=== PATIENT | female | born 1980 | race Hispanic/Latino ===

== ENCOUNTER 2017-04-19 16:08 | Emergency (ER) | payer OTHER ==
[~2017-04-19] VITALS: Ht 157.5 cm; Wt 78.0 kg
[~2017-04-19 16:08] MED LIST: ACETAMINOPHEN500 MG PO; AMOXICILLIN500 MG PO; AMOXICILLIN875 MG PO; BUPRENORPHINE HC8 MG SL; CLINDAMYCIN HC300 MG PO; GABAPENTIN300 MG PO; IBUPROFEN800 MG PO; MEDROL4 MG PO; MOTRIN IB200 MG PO; ONDANSETRON ODT4 MG PO; PENICILLIN V P500 MG PO; TRAMADOL HCL50 MG PO; ULTRAM50 MG PO
== END 2017-04-19 19:40 | disposition home or self-care (01) ==
LOC: ED 16:08
DX: S60.222A Contusion of left hand, initial encounter (principal); W17.89XA Other fall from one level to another, initial encounter; Z87.891 Personal history of nicotine dependence; Z90.49 Acquired absence of other specified parts of digestive tract; Z88.8 Allergy status to other drugs, medicaments and biological substances; Z79.899 Other long term (current) drug therapy
CPT/HCPCS: 72125; 73110; 73130; 84703; 99284

== ENCOUNTER 2017-04-21 14:27 | Emergency (ER) | payer OTHER ==
[~2017-04-21] VITALS: Ht 154.9 cm; Wt 77.1 kg
== END 2017-04-21 16:26 | disposition home or self-care (01) ==
LOC: ED 14:27
DX: S60.212A Contusion of left wrist, initial encounter (principal); Z88.8 Allergy status to other drugs, medicaments and biological substances; Z90.49 Acquired absence of other specified parts of digestive tract; W22.8XXA Striking against or struck by other objects, initial encounter
CPT/HCPCS: 73110; 99284

== ENCOUNTER 2017-09-25 18:59 | Emergency (ER) | payer OTHER ==
[~2017-09-25] VITALS: Ht 154.9 cm; Wt 77.1 kg
[2017-09-25] MEDS ORDERED: SUBOXONE 8 MG-1 EAC1 SL (19:11)
[2017-09-25] MEDS ORDERED: NEURONTIN400 MG PO (19:12)
== END 2017-09-25 19:27 | disposition home or self-care (01) ==
LOC: ED 18:59
DX: S09.90XA Unspecified injury of head, initial encounter (principal); V58.9XXA Unspecified occupant of pick-up truck or van injured in noncollision transport accident in traffic accident, initial encounter; Z88.8 Allergy status to other drugs, medicaments and biological substances; Z79.899 Other long term (current) drug therapy
CPT/HCPCS: 99282

== ENCOUNTER 2017-11-27 13:20 | Emergency (ER) | payer OTHER ==
[~2017-11-27] VITALS: Ht 157.5 cm; Wt 85.7 kg
[~2017-11-27 13:20] MED LIST changes: +NEURONTIN400 MG PO; +SUBOXONE 8 MG-1 EAC1 SL
[2017-11-27] MEDS ORDERED: VISTARIL25 MG PO (13:42)
[2017-11-27] MEDS ORDERED: PRAZOSIN HCL1 MG PO (13:43)
[2017-11-27] MEDS ORDERED: PROTONIX40 MG PO (15:03)
[2017-11-27] MEDS ORDERED: CIPRO250 MG PO (15:03)
== END 2017-11-27 15:22 | disposition home or self-care (01) ==
LOC: ED 13:20
DX: N39.0 Urinary tract infection, site not specified (principal); R10.11 Right upper quadrant pain; R79.89 Other specified abnormal findings of blood chemistry; Z88.6 Allergy status to analgesic agent; Z79.899 Other long term (current) drug therapy
CPT/HCPCS: 76705; 80053; 81001; 82150; 83690; 84703; 85025; 96374; 99284; J2405; J7030